=== PATIENT | male | born 1975 | race Hispanic/Latino ===

== ENCOUNTER 2017-06-12 04:54 | Emergency (ER) | payer OTHER ==
[~2017-06-12] VITALS: Ht 175.3 cm; Wt 86.2 kg
[2017-06-12 05:02] VITALS: BP 168/114
--- NOTE | 2017-06-12 05:06 | ED GENERAL ADULT ---
See Addendum History of Present Illness General Chief Complaint: Hand or Wrist Injury Stated Complaint: RT SWOLLEN WRIST, INJURY 3 DAYS AGO PER PT Source: patient Exam Limitations: no limitations Vital Signs & Intake/Output Vital Signs & Intake/Output Vital Signs Date Time Temp Pulse Resp B/P B/P Pulse O2 O2 Flow FiO2 Mean Ox Delivery Rate 06/12 0503 98 Room Air 06/12 0502 97.3 68 18 168/114 99 Room Air Allergies Coded Allergies: No Known Allergies (06/12/17) Reconcile Medications Ibuprofen 600 MG TABLET 1 TAB PO TID PRN PAIN with food Ibuprofen 600 MG TABLET 1 TAB PO TID PRN PAIN with food Triage Note: PT FROM HOME C/O RIGHT WRIST INJURY. 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 PT SEEMS RESTLESS IN TRIAGE. SWELLING NOTED AT THE RIGHT WRIST. PT STATES HE HAD SURGERY IN 2002 "I DONT KNOW WHAT THEY DID" PT HYPERTENSIVE IN TRIAGE WITH A HX OF HTN. PT STATES "I TOOK 600MG IBUPROFEN AROUNDS 0300". PT STATES HE TAKES METHADONE DAILY FROM A CLINIC. Triage Nurses Notes Reviewed? yes Onset: Abrupt Duration: day(s): Timing: recent history HPI: 06/12/17 6 AM 41-year-old male presents to the emergency department for right wrist pain. 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 now he's having severe pain and swelling to the right wrist. The onset of the symptoms was abrupt, the duration was approximately 72 hours prior to admission. The severity is significant as his symptoms required him to come to the emergency department for care. He has had prior surgery to the right wrist secondary to a fracture. He said the surgery for his right wrist was done in [place] years ago. He's had ongoing arthritis since. Now however since this last injury and said significant pain and swelling. On physical exam he does have a cicatrix over the dorsal right wrist. There is soft tissue swelling pain and tenderness. He has decreased range of motion to the right wrist. Past History Travel History Traveled to [place] past 21 day No Medical History Any Pertinent Medical History? see below for history Neurological: NONE EENT: NONE Cardiovascular: hypertension Respiratory: NONE Gastrointestinal: NONE Hepatic: NONE Renal: NONE Musculoskeletal: NONE Psychiatric: NONE Endocrine: NONE Blood Disorders: NONE Cancer(s): NONE Surgical History Surgical History: right wrist surgery Psychosocial History What is your primary language [place]an Tobacco Use: Current Daily Use Daily Tobacco Use Amount/Type: => 5 Cigarettes daily Family History Hx Contributory? No Review of Systems Review of Systems Constitutional: Reports: no symptoms. EENTM: Reports: no symptoms. Respiratory: Denies: short of breath. Cardiovascular: Denies: chest pain. GI: Reports: no symptoms. Genitourinary: Reports: no symptoms. Musculoskeletal: Reports: see HPI. Skin: Reports: no symptoms. Neurological/Psychological: Reports: no symptoms. Hematologic/Endocrine: Reports: no symptoms. Immunologic/Allergic: Reports: no symptoms. All Other Systems: Reviewed and Negative Physical Exam Physical Exam General Appearance: well developed/nourished, alert, awake, anxious, moderate distress Head: atraumatic, normal appearance Eyes: Bilateral: normal appearance, PERRL, EOMI. Ears, Nose, Throat: normal pharynx, normal ENT inspection Neck: normal inspection, supple Respiratory: normal breath sounds, no respiratory distress Cardiovascular: regular rate/rhythm Peripheral Pulses: 4+ radial (R), 4+ radial (L) Gastrointestinal: soft, non-tender Back: vertebral tenderness Extremities: swelling, tenderness Neurologic/Psych: no motor/sensory deficits, awake, alert, oriented x 3 Skin: intact, normal color, warm/dry Comments: Physical exam revealed a large scar, soft tissue swelling over the right wrist, there is decreased range of motion. No increased warmth. Radial ulnar and median nerve function are intact. Capillary refill is normal to the right hand. There is no snuffbox tenderness. X-ray shows chronic deformities and postsurgical changes Core Measures ACS in differential dx? No CVA/TIA Diagnosis: No Severe Sepsis Present: No Septic Shock Present: No Progress Differential Diagnoses I considered the following diagnoses in my evaluation of the patient: [Fracture, dislocation, tendinitis, arthritis, infection, lunate dislocation, perilunate dislocation] Plan of Care: Orders Procedure Date/time Status XRY-WRIST 2 VIEWS RIGHT 06/12 0507 Active Initial ED EKG: none Departure Departure Disposition: HOME OR SELF CARE Condition: Stable Clinical Impression Primary Impression: Tendinitis Secondary Impressions: Posttraumatic arthritis of wrist Referrals: [facility] MAN (PCP/Family) Departure Forms: Customer Survey General Discharge Information Prescriptions: Current Visit Scripts Ibuprofen 1 TAB PO TID PRN PAIN #20 TAB with food Ibuprofen 1 TAB PO TID PRN PAIN #30 TAB with food Comments PATIENT: MEMO FERNÁNDEZ PRESENT AGE: 41 PATIENT ACCOUNT NO: [id number] : 75 LOCATION: ER ORDERING PHYSICIAN: ESTELLE VAZQUEZ DO SERVICE DATE: 06/12/17 EXAM TYPE: RAD - XRY-WRIST 2 VIEWS RIGHT EXAMINATION: XR WRIST, RIGHT CLINICAL INFORMATION: 41-year-old man with possible sprain. COMPARISON: None TECHNIQUE: Two views of the right wrist. FINDINGS: The carpal bones are abnormal in orientation and number. No definite fracture is appreciated. Moderate chronic degenerative changes are visible. IMPRESSION: No definite evidence of acute fracture. Abnormal carpal bones. DICTATED BY: RAYMUNDO TAMAYO MD DATE/TIME DICTATED:06/12/17540 SENIOR EXAMINER:SAVANA DATE/TIME TRANSCRIBED:06/12/17540 CONFIDENTIAL, DO NOT COPY WITHOUT APPROPRIATE AUTHORIZATION. <Electronically signed in Other Vendor System> SIGNED BY: RAYMUNDO TAMAYO MD 06/12/1746 The patient has severe arthritis and postsurgical changes on radiograph. There is no new history of direct trauma. He was placed in a right wrist splint by the ED RN. This was rechecked by me. He was told to take Motrin as needed for pain. Elevate his wrist. Follow-up with the hand surgeon on Tuesday. Dr. Ramos's phone number was given. The patient was also called at home and a message was left instructing him to follow-up and have his blood pressure rechecked in 48 hours. Critical Care Note Critical Care Note Critical Care Time: non-applicable
--- NOTE | 2017-06-12 05:46 | RADIOLOGY REPORT ---
EXAMINATION: XR WRIST, RIGHT CLINICAL INFORMATION: 41-year-old man with possible sprain. COMPARISON: None TECHNIQUE: Two views of the right wrist. FINDINGS: The carpal bones are abnormal in orientation and number. No definite fracture is appreciated. Moderate chronic degenerative changes are visible. IMPRESSION: No definite evidence of acute fracture. Abnormal carpal bones.
[2017-06-12] MEDS ORDERED: IBUPROFEN600 M1 PO ×2 (05:59→06:01)
== END 2017-06-12 06:06 ==
LOC: ERH 04:54
DX: M77.8 Other enthesopathies, not elsewhere classified (principal); M19.131 Post-traumatic osteoarthritis, right wrist
CPT/HCPCS: 73100-RT